=== PATIENT | female | born 1980 | race Caucasian/White ===

== ENCOUNTER → 2017-10-14 | Outpatient (REF) | payer BC | LOC: M LAB REF 13:31 | DX: Z12.4 Encounter for screening for malignant neoplasm of cervix (principal) | CPT/HCPCS: G0123 ==

== ENCOUNTER → 2018-11-07 | Outpatient (REF) | payer BC ==
[~2018-11-07] MED LIST: IBUP-1114 PO; MAPA500T2 PO; PRENTAB9 PO
[2018-11-09 14:10] LABS: HPV HYBRID CAPTURE II Negative (Negative)
== END ==
LOC: M LAB REF 13:17
PROVIDERS: ATTEND Advanced Practice Midwife
DX: Z12.4 Encounter for screening for malignant neoplasm of cervix (principal)
CPT/HCPCS: 87624; G0123

== ENCOUNTER → 2022-07-02 | Outpatient (REF) | payer BC | LOC: M SFHCWAGY 13:38 | PROVIDERS: ATTEND Nurse Practitioner Family | DX: Z12.4 Encounter for screening for malignant neoplasm of cervix (principal) | CPT/HCPCS: 87624; G0123 ==

== ENCOUNTER → 2022-07-16 | Outpatient (CLI) | payer BC | LOC: M WHC 09:01 | PROVIDERS: ATTEND Nurse Practitioner Family | DX: Z12.31 Encounter for screening mammogram for malignant neoplasm of breast (principal); N63.11 Unspecified lump in the right breast, upper outer quadrant ==

== ENCOUNTER → 2022-08-05 | Outpatient (CLI) | payer BC | LOC: M WHC 07:53 | PROVIDERS: ATTEND Nurse Practitioner Family | DX: R92.2 Inconclusive mammogram (principal) | CPT/HCPCS: 76642; 77066; G0279 ==

== ENCOUNTER → 2023-07-08 | Outpatient (REF) | payer BC | LOC: M PLALAB 09:45 | PROVIDERS: ATTEND Nurse Practitioner Family | DX: Z12.4 Encounter for screening for malignant neoplasm of cervix (principal) | CPT/HCPCS: 87624; G0123 ==

== ENCOUNTER → 2023-08-08 | Outpatient (CLI) | payer BC | LOC: M WHC 07:51 | PROVIDERS: ATTEND Nurse Practitioner Family | DX: Z12.31 Encounter for screening mammogram for malignant neoplasm of breast (principal) ==

== ENCOUNTER → 2024-10-17 | Outpatient (CLI) | payer BC | LOC: M WHC 08:59 | PROVIDERS: ATTEND Nurse Practitioner Family | DX: Z12.31 Encounter for screening mammogram for malignant neoplasm of breast (principal) ==